=== PATIENT | female | born 1965 ===

== ENCOUNTER 2016-11-16 14:51 | Observation (INO) | payer MEDICARE ==
--- NOTE | 2016-11-16 16:53 | ED PDOC ---
HPI: Psych/Substance Abuse Time Seen by Provider: 11/16/16 15:50 Chief Complaint (Nursing): Psychiatric Evaluation Chief Complaint (Provider): crisis eval History Per: Patient, Family (brother) Additional Complaint(s): 51-year-old female with history of schizophrenia presents to emergency department for crisis evaluation. Patient's brother at bedside states the patient has been noncompliant with her psychiatric meds. Patient is supposed to take Haldol daily but has not taken it in several months. She also is supposed to take high blood pressure meds and has been noncompliant with this as well. Patient denies suicidal or homicidal ideation, she denies auditory or visual hallucinations. Past Medical History Reviewed: Historical Data, Nursing Documentation, Vital Signs Vital Signs: Last Vital Signs Temp 98.2 F 11/16/16 15:19 Pulse 87 11/16/16 15:19 Resp 16 11/16/16 15:19 BP 157/102 H 11/16/16 15:19 Pulse Ox 100 11/16/16 15:19 - Medical History PMH: HTN, Schizophrenia - Surgical History Other surgeries: foot surgery - Family History Family History: States: No Known Family Hx - Living Arrangements Living Arrangements: With Family - Social History Current smoker - smoking cessation education provided: No Alcohol: None Drugs: Denies - Home Medications Home Medications: Ambulatory Orders Medication Instructions Recorded Clonidine HCl [Catapres] 1 tab PO BID 11/17/16 Haloperidol [Haldol] 10 mg PO BID 11/17/16 - Allergies Allergies/Adverse Reactions: Allergies Allergy/AdvReac Type Severity Reaction Status Date / Time No Known Allergies Allergy Verified 11/16/16 15:19 Review of Systems ROS Statement: Except As Marked, All Systems Reviewed And Found Negative Constitutional: Negative for: Fever Cardiovascular: Negative for: Chest Pain Gastrointestinal: Negative for: Nausea, Vomiting Neurological: Negative for: Headache, Dizziness Psych: Positive for: Other (crisis eval, noncompliant with meds) Physical Exam - Reviewed Nursing Documentation Reviewed: Yes Vital Signs Reviewed: Yes - Physical Exam Appears: Positive for: Well, Non-toxic, No Acute Distress Head Exam: Positive for: ATRAUMATIC, NORMAL INSPECTION, NORMOCEPHALIC Skin: Negative for: Rash Cardiovascular/Chest: Positive for: Regular Rate, Rhythm Respiratory: Positive for: Normal Breath Sounds Extremity: Positive for: Normal ROM Neurologic/Psych: Positive for: Alert, Oriented, Mood/Affect (anxious, won't make eye contact), Other - Laboratory Results Result Diagrams: 11/16/16 17:44 11/16/16 17:44 - ECG Interpretation Of ECG: Normal sinus rhythm 83 bpm, no acute findings, reviewed by PA and ED attending. O2 Sat by Pulse Oximetry: 100 Pulse Ox Interpretation: Normal Medical Decision Making Medical Decision Makin51 year old here for crisis eval. Brother is with patient at bedside Plan: Labs EKG CXR Crisis eval 1:1 observation Patient allowed for EKG but refused bedside chest x-ray and refused to provide urine sample. Patient has been noncompliant with blood pressure medication and will not state what medication she takes. Clonidine 0.1 mg tablet was ordered but patient refused to take the medication. Patient's brother was at bedside but then left. Crisis counselor attempted to speak with patient but she would not comply with evaluation. As per crisis counselor patient will be referred to [facility] for screening. Several attempts were made to try and redirect patient for cooperation with ED evaluation however patient continues to be adamant about not taking medication or providing urine sample. Patient was placed in 4 point restraints and given 5 mg IM haldol. She will remain under 1:1 bedside observation. Disposition - Clinical Impression Clinical Impression: Schizophrenia - Patient ED Disposition Is Patient to be Admitted: Transfer of Care - Disposition Disposition: Transfer of Care Disposition Time: 20:05 Condition: FAIR Patient Signed Over To: Rome Flores Handoff Comments: Signed out pending medical clearance, [facility] screening and final disposition
[2016-11-16 17:55] LABS: BASO # 0.1 K/uL (0.0-0.2); BASO % 0.8 % (0.0-2.0); EOS # 0.2 K/uL (0.0-0.7); EOS % 1.9 % (0.0-4.0); HEMATOCRIT 39.2 % (34.0-47.0); LYMPH # 2.1 K/uL (1.0-4.3); LYMPH % 20.2 % (20.0-40.0); MEAN CORPUSCULAR HEMOGLOBIN 29.2 pg (27.0-31.0); MEAN CORPUSCULAR HGB CONC 32.9 g/dL (33.0-37.0); MEAN PLATELET VOLUME 8.5 fl (7.2-11.7); MONO # 0.9 K/uL (0.0-0.8); MONO % 8.4 % (0.0-10.0); NEUT # 7.1 K/uL (1.8-7.0); NEUT % 68.7 % (50.0-75.0); RED CELL DISTRIBUTION WIDTH 14.6 % (11.5-14.5); WHITE BLOOD COUNT 10.3 K/uL (4.8-10.8)
[2016-11-16 18:01] LABS: ALKALINE PHOSPHATASE 90 U/L (38-126); ALT/SGPT 26 U/L (9-52); AST/SGOT 42 U/L (14-36); BILIRUBIN,TOTAL 0.6 mg/dl (0.2-1.3); BLOOD UREA NITROGEN 16 mg/dl (7-17); CALCIUM 9.6 mg/dL (8.4-10.2); CARBON DIOXIDE 29 mmol/L (22-30); CHLORIDE 101 mmol/L (98-107); GFR AFRICAN-AMERICAN > 60; GLUCOSE,RANDOM 106 mg/dL (65-105); POTASSIUM 3.5 MMOL/L (3.6-5.0); SODIUM 143 mmol/l (132-148); TOTAL PROTEIN 8.4 G/DL (6.3-8.2)
[2016-11-16 21:13] LABS: RBC URINE 7 /hpf (0-3); URINE BACTERIA FEW (<OCC); URINE BILIRUBIN NEGATIVE (NEGATIVE); URINE BLOOD NEGATIVE (NEGATIVE); URINE COLOR YELLOW (YELLOW); URINE GLUCOSE (UA) NEG (Normal); URINE KETONE NEGATIVE (NEGATIVE); URINE LEUKOCYTE ESTERASE NEG Leu/uL (Negative); URINE PROTEIN NEGATIVE (NEGATIVE); URINE UROBILINOGEN 0.2-1.0 mg/dL (0.2-1.0); WBC URINE 1 /hpf (0-5)
--- NOTE | 2016-11-16 21:29 | ED PDOC ---
- Laboratory Results Result Diagrams: 11/16/16 17:44 11/16/16 17:44 - ECG O2 Sat by Pulse Oximetry: 100 - Progress ED Course And Treament: Patient transferred to my care pending UA/psych screening. Urine obtained via straight cath. UA wnl CXR: rotated film. no infiltrate noted. Patient medically cleared in ED for psych eval. Seen by [facility] screener. To be transferred to [facility]; accepting psych Dr. Monroe. Disposition - Clinical Impression Clinical Impression: Schizophrenia - POA Present On Arrival: None - Disposition Disposition: Transfer of Care Disposition Time: 06:00 Condition: FAIR Patient Signed Over To: Justo Foley Handoff Comments: PENDING [facility] TRANSFER
--- NOTE | 2016-11-17 03:03 | ED PDOC ---
- Laboratory Results Result Diagrams: 11/16/16 17:44 11/16/16 17:44 - ECG O2 Sat by Pulse Oximetry: 100 Medical Decision Making Medical Decision Making: Patient s/o from Ashley Flores PA-C at 0600 pending [facility] screening. Patient is stable on re-evaluation. Patient s/o to Dr. Morris at 0700 pending [facility] bed. Scribe Attestation: Documented by Navin Richard acting as a scribe for Justo Foley MD. Provider Scribe Attestation: All medical record entries made by the Scribe were at my direction and personally dictated by me. I have reviewed the chart and agree that the record accurately reflects my personal performance of the history, physical exam, medical decision making, and the department course for this patient. I have also personally directed, reviewed, and agree with the discharge instructions and disposition. Disposition - Clinical Impression Clinical Impression: Schizophrenia - POA Present On Arrival: None - Disposition Disposition: Transfer of Care Disposition Time: 07:00 Condition: FAIR Patient Signed Over To: Andrez Morris III Handoff Comments: pending [facility] screening
--- NOTE | 2016-11-17 07:13 | ED PDOC ---
- Laboratory Results Result Diagrams: 11/16/16 17:44 11/16/16 17:44 - ECG O2 Sat by Pulse Oximetry: 100 Pulse Ox Interpretation: Normal Medical Decision Making Medical Decision Making: Time: 0700 Patient signed out by Dr[address] Foley pending bed availability at [facility] Remained stable in ED over course of shift, bed availability limited and delayed at [facility] per crisis report. Endorse next shift. Scribe Attestation: Documented by Lou Corcoran acting as a scribe for Andrez Morris DO MD Scribe Attestation: All medical record entries made by the Scribe were at my direction and personally dictated by me. I have reviewed the chart and agree that the record accurately reflects my personal performance of the history, physical exam, medical decision making, and the department course for this patient. I have also personally directed, reviewed, and agree with the discharge instructions and disposition. Disposition Counseled Patient/Family Regarding: Studies Performed, Diagnosis - Clinical Impression Clinical Impression: Schizophrenia - POA Present On Arrival: None - Disposition Disposition: Transfer of Care Disposition Time: 15:00 Condition: FAIR
[2016-11-17 08:13] VITALS: RESP 16
--- NOTE | 2016-11-17 10:29 | CARD ---
APPROVED REPORT EKG Measurement Heart [id number] <Conclusion> Normal sinus rhythm Minimal voltage criteria for LVH, may be normal variant Borderline ECG
--- NOTE | 2016-11-17 11:03 | RAD ---
HISTORY: clearance COMPARISON: No prior. FINDINGS: LUNGS: Poor inspiration with low lung volumes, mild crowded bronchovascular markings and mild bibasilar atelectasis left greater than right. Possibility of developing left lower lobe infiltrate cannot be excluded therefore followup studies could be performed. PLEURA: No significant pleural effusion identified, no pneumothorax apparent. CARDIOVASCULAR: Normal. OSSEOUS STRUCTURES: No significant abnormalities. VISUALIZED UPPER ABDOMEN: Normal. OTHER FINDINGS: None. IMPRESSION: Poor inspiration with low lung volumes, mild crowded bronchovascular markings and mild bibasilar atelectasis left greater than right. Possibility of developing left lower lobe infiltrate cannot be excluded therefore followup studies could be performed.
[2016-11-17 12:06] VITALS: BP 156/85; PULSE 98; TEMP 98.2
[2016-11-17 17:50] VITALS: O2SAT 100
== END 2016-11-17 13:54 ==
LOC: H.ER 14:51 → H.EROBSV 17:03
PROVIDERS: ADMIT Emergency Medicine; ATTEND Emergency Medicine
DX: F20.9 Schizophrenia, unspecified (principal); I10 Essential (primary) hypertension; Z91.19 Patient's noncompliance with other medical treatment and regimen; Z78.1 Physical restraint status
CPT/HCPCS: 36415; 71010; 80053; 81003; 85025; 87086; 93005; 96372; 99285; G0378; G0480; J1630

== ENCOUNTER 2016-12-04 17:56 | Emergency (ER) | payer MEDICARE ==
[2016-12-04 18:04] VITALS: BMI 25.0
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
== END 2016-12-04 21:27 | disposition home or self-care (01) ==
LOC: H.ER 17:56
DX: F20.9 Schizophrenia, unspecified (principal); I10 Essential (primary) hypertension